=== PATIENT | male | born 1980 | race Caucasian/White ===

== ENCOUNTER 2021-06-08 11:32 | Emergency (ER) | payer OTHER ==
[~2021-06-08] VITALS: Ht 172.7 cm; Wt 90.7 kg
[2021-06-08] MEDS ORDERED: NAPROSYN500 MG PO (13:54)
[2021-06-08] MEDS ORDERED: DOXYCYCLINE 10100 MG PO (13:54)
[2021-06-08 14:01] VITALS: BP 125/85
== END 2021-06-08 14:01 | disposition home or self-care (01) ==
LOC: M.ERS 11:32
DX: L02.416 Cutaneous abscess of left lower limb (principal); Z88.0 Allergy status to penicillin